=== PATIENT | female | born 1980 | race African-American/Black ===

== ENCOUNTER 2019-03-03 02:11 | Inpatient (IN) | payer MEDICAID ==
[~2019-03-03] VITALS: Ht 157.5 cm; Wt 109.8 kg
[2019-03-03] VITALS (9 sets, daily range): BP systolic 123–208; BP diastolic 89–130
--- NOTE | 2019-03-03 02:47 | PHYS DOC ---
Past Medical History Past Medical History: Hypertension Additional Past Medical Histor: PSUEDO TUMOR Past Surgical History: Tubal ligation Alcohol Use: None Drug Use: None Adult General Chief Complaint Chief Complaint: HEADACHE HPI HPI 39-year-old female presents to the emergency department via EMS. Patient states she was at work, noticed that natural gas smell subsequently developed a headache along with experiences syncopal episode. She states unknown amount of time for loss of consciousness, she could hear her boss talking with her. She denies any nausea or vomiting. She denies any chest pain or shortness of breath. She is currently alert and oriented, complains of headache. Patient does have underlying history of hypertension. Nothing makes her symptoms worse or better. Review of Systems Review of Systems Constitutional: Denies fever or chills [] Eyes: Denies change in visual acuity, redness, or eye pain [] HENT: Denies nasal congestion or sore throat [] Respiratory: Denies cough or shortness of breath [] Cardiovascular: No additional information not addressed in HPI [] GI: Denies abdominal pain, nausea, vomiting, bloody stools or diarrhea [] : Denies dysuria or hematuria [] Musculoskeletal: Denies back pain or joint pain [] Integument: Denies rash or skin lesions [] Neurologic: Headache All other systems were reviewed and found to be within normal limits, except as documented in this note. Current Medications Current Medications Current Medications Medications (Trade) Dose Ordered Sig/Farida Start Time Stop Time Status Last Admin Dose Admin Clonidine HCl (Catapres) 0.1 mg 1X ONCE 03/03/19 03:00 03/03/19 03:01 DC 03/03/19 03:11 0.1 MG Hydralazine HCl (Apresoline Inj) 10 mg 1X ONCE 03/03/19 04:00 03/03/19 04:01 UNV Ketorolac Tromethamine (Toradol 30mg Vial) 30 mg 1X ONCE 03/03/19 03:00 03/03/19 03:01 DC 03/03/19 03:11 30 MG Allergies Allergies Allergies Coded Allergies Type Severity Reaction Last Updated Verified acetaminophen Allergy Intermediate 03/03/19 Yes hydrocodone Allergy Intermediate 03/03/19 Yes Physical Exam Physical Exam Constitutional: Well developed, well nourished, no acute distress, non-toxic appearance. [] HENT: Normocephalic, atraumatic, bilateral external ears normal, oropharynx moist, no oral exudates, nose normal. [] Eyes: PERRLA, EOMI, conjunctiva normal, no discharge. [] Cardiovascular:Heart rate regular rhythm, no murmur [] Lungs & Thorax: Bilateral breath sounds clear to auscultation [] Abdomen: Bowel sounds normal, soft, no tenderness, no masses, no pulsatile masses. [] Skin: Warm, dry, no erythema, no rash. [] Extremities: No tenderness, no cyanosis, no clubbing, ROM intact, no edema. [] Neurologic: Alert and oriented X 3, no focal deficits noted. [] Psychologic: Affect normal, judgement normal, mood normal. [] Current Patient Data Vital Signs Vital Signs Date Time Temp Pulse Resp B/P (MAP) Pulse Ox O2 Delivery O2 Flow Rate FiO2 03/03/19 03:11 77 211/110 03/03/19 02:11 97.4 18 100 Room Air 97.4 Lab Values Laboratory Tests Test 03/03/19 02:42 03/03/19 03:08 O2 Saturation 94 % (92-99) Arterial Blood pH 7.39 (7.35-7.45) Arterial Blood pCO2 at Patient Temp 36 mmHg (35-46) Arterial Blood pO2 at Patient Temp 71 mmHg (75-108) L Arterial Blood HCO3 22 mmol/L (21-28) Arterial Blood Base Excess -3 mmol/L (-3-3) Oxyhemoglobin 90.6 % Methemoglobin 0.4 % (0.0-1.9) Carbon Monoxide, Quantitative 3.4 % (0.0-1.9) H FiO2 Room air White Blood Count 5.5 x10^3/uL (4.0-11.0) Red Blood Count 4.77 x10^6/uL (3.50-5.40) Hemoglobin 13.7 g/dL (12.0-15.5) Hematocrit 40.6 % (36.0-47.0) Mean Corpuscular Volume 85 fL (79-100) Mean Corpuscular Hemoglobin 29 pg (25-35) Mean Corpuscular Hemoglobin Concent 34 g/dL (31-37) Red Cell Distribution Width 13.7 % (11.5-14.5) Platelet Count 246 x10^3/uL (140-400) Neutrophils (%) (Auto) 53 % (31-73) Lymphocytes (%) (Auto) 37 % (24-48) Monocytes (%) (Auto) 6 % (0-9) Eosinophils (%) (Auto) 3 % (0-3) Basophils (%) (Auto) 1 % (0-3) Neutrophils # (Auto) 2.9 x10^3/uL (1.8-7.7) Lymphocytes # (Auto) 2.0 x10^3/uL (1.0-4.8) Monocytes # (Auto) 0.3 x10^3/uL (0.0-1.1) Eosinophils # (Auto) 0.2 x10^3/uL (0.0-0.7) Basophils # (Auto) 0.1 x10^3/uL (0.0-0.2) Sodium Level 142 mmol/L (136-145) Potassium Level 3.8 mmol/L (3.5-5.1) Chloride Level 103 mmol/L (98-107) Carbon Dioxide Level 27 mmol/L (21-32) Anion Gap 12 (6-14) Blood Urea Nitrogen 11 mg/dL (7-20) Creatinine 0.9 mg/dL (0.6-1.0) Estimated GFR (Cockcroft-Gault) 84.3 BUN/Creatinine Ratio 12 (6-20) Glucose Level 97 mg/dL (70-99) Calcium Level 9.5 mg/dL (8.5-10.1) Total Bilirubin 0.2 mg/dL (0.2-1.0) Aspartate Amino Transferase (AST) 16 U/L (15-37) Alanine Aminotransferase (ALT) 22 U/L (14-59) Alkaline Phosphatase 101 U/L (46-116) Troponin I Quantitative < 0.017 ng/mL (0.000-0.055) Total Protein 7.6 g/dL (6.4-8.2) Albumin 4.0 g/dL (3.4-5.0) Albumin/Globulin Ratio 1.1 (1.0-1.7) Laboratory Tests 03/03/19 03:08 Laboratory Tests 03/03/19 03:08 EKG EKG [] Radiology/Procedures Radiology/Procedures [facility] [address] [place] [address] IMAGING REPORT Signed PATIENT: SARAH MIGUEL ACCOUNT: [id number] : 1980 LOCATION: ER AGE: 39 SEX: F EXAM STATUS: REG ER ORD. PHYSICIAN: FARIDA PUENTE MD REASON: Syncope, + LOC, hit head PROCEDURE: CT HEAD WO CONTRAST CT head without contrast PQRS statement: CT scans at this facility use dose reduction including either automated exposure control, iterative reconstructions, and /or weight based radiation dosing via mA and kV modification when appropriate to reduce radiation dose to as low as reasonably achievable. HISTORY: Syncope, fell and hit head. FINDINGS: No intracranial hemorrhage, mass, hydrocephalus or cortical infarction. There is a subtle echogenic focus of the left frontal lobe subcortical white matter above the sylvian fissure images 17-19. Small volume of fluid right maxillary sinus. Mastoids and bones are unremarkable. Orbits unremarkable. IMPRESSION: 1. No acute traumatic intracranial CT abnormality. 2. Mild fluid within the right maxillary sinus could be sinusitis. 3. Focal subcortical hypoattenuation of the left frontal lobe white matter above the sylvian fissure, this could represent an age-indeterminate area of ischemic or demyelinating white matter injury. Electronically signed by: Gissel Ruggiero MD (03/03/2019 3:50 AM) [facility] DICTATED and SIGNED BY: GISSEL RUGGIERO MD DATE: 03/03/19 0350 [] Course & Med Decision Making Course & Med Decision Making Pertinent Labs and Imaging studies reviewed. (See chart for details) []39-year-old female presents to the emergency department via EMS. Patient states she was at work, noticed that natural gas smell subsequently developed a headache along with experiences syncopal episode. She states unknown amount of time for loss of consciousness, she could hear her boss talking with her. She denies any nausea or vomiting. She denies any chest pain or shortness of breath. She is currently alert and oriented, complains of headache. Patient does have underlying history of hypertension. Nothing makes her symptoms worse or better. Labs and imaging reviewed. CT the head reveals no evidence of acute intracranial process, she has old ischemic changes. Labs reveal evidence of elevated carbon monoxide of 3.4, normal being less than 1.9. Given the symptoms of headache, elevated carbon monoxide, hypertensive urgency or plan for admission and observation. Patient provided Toradol 30 mg IV, clonidine 0.1 mg by mouth, hydralazine 10 mg IV. Will follow blood pressure closely. Patient will be admitted to the hospitalist. Patient is aware of the plans for admission at this time and agrees. Questions regarding admission were answered at bedside. Dragon Disclaimer Dragon Disclaimer This electronic medical record was generated, in whole or in part, using a voice recognition dictation system. Departure Departure Impression: Primary Impression: Syncope and collapse Additional Impressions: Carbon monoxide poisoning Hypertensive urgency Disposition: ADMITTED INPATIENT Admitting Physician: KECIA Condition: STABLE Problem Qualifiers Additional Impressions: Carbon monoxide poisoning Encounter type: initial encounter Injury intent: accidental or unintentional Qualified Codes: T58.91XA - Toxic effect of carbon monoxide from unspecified source, accidental (unintentional), initial encounter FARIDA PUENTE MD Mar 03, 2019 02:47
[2019-03-03] MEDS ORDERED: cloNIDine HCL 0.1 MG TABLET PO ONE (03:00)
[2019-03-03] MEDS ORDERED: KETOROLAC 30 MG/ML VIAL. IV ONE (03:00)
[2019-03-03 03:03] LABS: BASE EXCESS COOX -3 mmol/L (-3-3); HCO3 COOX 22 mmol/L (21-28); METHEMOGLOBIN 0.4 % (0.0-1.9); OXYHEMOGLOBIN 90.6 %; PCO2 COOX 36 mmHg (35-46); PO2 COOX 71 mmHg (75-108); SAT O2 COOX 94 % (92-99)
[2019-03-03 03:12] LABS: BASO # 0.1 x10^3/uL (0.0-0.2); BASO % 1 % (0-3); EOS # 0.2 x10^3/uL (0.0-0.7); EOS % 3 % (0-3); HEMATOCRIT 40.6 % (36.0-47.0); HEMOGLOBIN 13.7 g/dL (12.0-15.5); LYMPH % 37 % (24-48); MEAN CORPUSCULAR HEMOGLOBIN 29 pg (25-35); MEAN CORPUSCULAR HGB CONC 34 g/dL (31-37); MEAN CORPUSCULAR VOLUME 85 fL (79-100); MONO # 0.3 x10^3/uL (0.0-1.1); MONO % 6 % (0-9); NEUT # 2.9 x10^3/uL (1.8-7.7); NEUT % 53 % (31-73); PLATELET COUNT 246 x10^3/uL (140-400); RED BLOOD COUNT 4.77 x10^6/uL (3.50-5.40); RED CELL DISTRIBUTION WIDTH 13.7 % (11.5-14.5); WHITE BLOOD COUNT 5.5 x10^3/uL (4.0-11.0)
[2019-03-03 03:21] LABS: CALCIUM 9.5 mg/dL (8.5-10.1); CREATININE 0.9 mg/dL (0.6-1.0); GFR 84.3; POTASSIUM 3.8 mmol/L (3.5-5.1)
[2019-03-03 03:27] LABS: ALBUMIN/GLOBULIN RATIO 1.1 (1.0-1.7); TOTAL BILIRUBIN 0.2 mg/dL (0.2-1.0); TOTAL PROTEIN 7.6 g/dL (6.4-8.2)
--- NOTE | 2019-03-03 03:53 | RAD ---
CT head without contrast PQRS statement: CT scans at this facility use dose reduction including either automated exposure control, iterative reconstructions, and /or weight based radiation dosing via mA and kV modification when appropriate to reduce radiation dose to as low as reasonably achievable. HISTORY: Syncope, fell and hit head. FINDINGS: No intracranial hemorrhage, mass, hydrocephalus or cortical infarction. There is a subtle echogenic focus of the left frontal lobe subcortical white matter above the sylvian fissure images 17-19. Small volume of fluid right maxillary sinus. Mastoids and bones are unremarkable. Orbits unremarkable. IMPRESSION: 1. No acute traumatic intracranial CT abnormality. 2. Mild fluid within the right maxillary sinus could be sinusitis. 3. Focal subcortical hypoattenuation of the left frontal lobe white matter above the sylvian fissure, this could represent an age-indeterminate area of ischemic or demyelinating white matter injury. Electronically signed by: Clif Ruggiero MD (03/03/2019 3:50 AM) [facility]
[2019-03-03] MEDS ORDERED: hydrALAZINE 20 MG/ML VIAL. IVP ONE (04:30)
[2019-03-03] MEDS ORDERED: CLONAZEPAM1 MG PO (07:24)
[2019-03-03] MEDS ORDERED: TOPI100T8 PO (07:24)
[2019-03-03] MEDS ORDERED: GABA600T7 PO (07:24)
[2019-03-03] MEDS ORDERED: LISI1TAB23 PO (07:24)
--- NOTE | 2019-03-03 07:32 | NUR ---
Pt admitted this am pt states she has been sick for approximately a week and states been having a poor appetite. Pt states she was at work and smelled a gas chemical and immediately had a headache and believes she fell however she does not know if she hit her head. Pt thinks her boss helped to ease her to the floor. Pt states having a history of flu B. Pt states seeing her primary Physician at [facility] on and they tested her for Flu B and it came back inconclusive. Pt sent home without abx. Pt with hoarseness noted and difficulty talking. When pt transferred to floor Nurse states possible laryngitis.
--- NOTE | 2019-03-03 07:51 | EKG ---
[facility] [address] [place] [address] Test Date: 2019-03-03 Test Time: 02:29:10 Pat Name: SARAH MIGUEL Department: Room: Gender: F Digital Production Manager: : 1980 Requested By: FARIDA PUENTE Order Number: [id number] Reading MD: Measurements Intervals [place] Rate: 77 P: 72 WV: 190 QRS: -9 QRSD: 80 T: 22 QT: 436 QTc: 495 Interpretive Statements SINUS RHYTHM LEFTWARD AXIS PROLONGED QT NO SPECIFIC ECG ABNORMALITIES RI6.01 No previous ECG available for comparison
--- NOTE | 2019-03-03 08:26 | PDOC1 ---
History and Physical Date of Admission Date of Admission DATE: 03/03/19 TIME: 08:25 Identification/Chief Complaint Chief Complaint SEEN IN ER, WORKS AT [employer] [place] [address] Patient states she was at work, noticed that natural gas smell subsequently developed a headache along with experienced a syncopal episode. She states unknown amount of time for loss of consciousness, she could hear her boss talking with her. She denies any nausea or vomiting. She denies any chest pain HAS shortness of breath. She is currently alert and oriented has been hoarse x a week, is a smoker Past Medical History Past Medical History Past Medical History Past Medical History: Hypertension Additional Past Medical Histor: PSUEDO TUMOR Past Surgical History: Tubal ligation Alcohol Use: None Drug Use: None fhx obesity Rheumatologic: No pertinent hx Infectious disease: No pertinent hx Family History Family History: High Cholestrol, Hypertension Social History Smoke: <1 pack per day ALCOHOL: none Drugs: None Current Problem List Problem List Problems Medical Problems: (1) Carbon monoxide poisoning Status: Acute (2) Hypertensive urgency Status: Acute (3) Syncope and collapse Status: Acute Current Medications Current Medications Current Medications Clonidine HCl (Catapres) 0.1 mg 1X ONCE PO Last administered on 03/03/19at 03:11; Start 03/03/19 at 03:00; Stop 03/03/19 at 03:01; Status DC Ketorolac Tromethamine (Toradol 30mg Vial) 30 mg 1X ONCE IV Last administered on 03/03/19at 03:11; Start 03/03/19 at 03:00; Stop 03/03/19 at 03:01; Status DC Hydralazine HCl (Apresoline Inj) 10 mg 1X ONCE IVP Last administered on 03/03/19at 04:29; Start 03/03/19 at 04:30; Stop 03/03/19 at 04:31; Status DC Active Scripts Active Reported Gabapentin 600 Mg Tablet 300 Mg PO TID Topiramate Unknown Strength Tablet Unknown Dose PO TID Lisinopril-Hctz 10-12.5 Mg Tab (Lisinopril/Hydrochlorothiazide) Unknown Strength Tablet Unknown Dose PO DAILY Clonazepam 1 Mg Tablet 1 Mg PO HS PRN Allergies Allergies: Coded Allergies: acetaminophen (Verified Allergy, Intermediate, 03/03/19) hydrocodone (Verified Allergy, Intermediate, 9/15/19) ROS Review of System Review of Systems Review of Systems Constitutional: Denies fever or chills [] Eyes: Denies change in visual acuity, redness, or eye pain [] HENT: Denies nasal congestion or sore throat [] Respiratory: cough MILD shortness of breath [] Cardiovascular: No additional information not addressed in HPI [] GI: Denies abdominal pain, nausea, vomiting, bloody stools or diarrhea [] : Denies dysuria or hematuria [] Musculoskeletal: Denies back pain or joint pain [] Integument: Denies rash or skin lesions [] Neurologic: Headache 14 PT systems were reviewed and found to be within normal limits, except as documented PSYCHOLOGICAL ROS: No: Anxiety, Behavioral Disorder, Concentration difficultie, Decreased libido, Depression, Disorientation, Hallucinations, Hostility, Irritablity, Memory difficulties, Mood Swings, Obsessive thoughts, Physical abuse, Sexual abuse, Sleep disturbances, Suicidal ideation, Other HEENT: YES: Heacaches, Nasal congestion, Vocal changes Hematological and Lymphatic: No: Bleeding Problems, Blood Clots, Blood Transfusions, Brusing, Night Sweats, Pallor, Swollen Lymph Nodes, Other Respiratory: YES: Shortness of breath Gastrointestinal: No Nausea, No Vomiting, No Abdominal Pain, No Diarrhea, No Constipation, No Melena, No Hematochezia, No Other Physical Exam Physical Exam Physical Exam Physical Exam Constitutional: Well developed, well nourished, no acute distress, non-toxic appearance. [] HENT: Normocephalic, atraumatic, bilateral external ears normal, oropharynx moist, no oral exudates, nose normal. [] Eyes: PERRLA, EOMI, conjunctiva normal, no discharge. [] Cardiovascular:Heart rate regular rhythm, no murmur [] Lungs & Thorax: Bilateral breath sounds clear to auscultation [] Abdomen: Bowel sounds normal, soft, no tenderness, no masses, no pulsatile masses. [] Skin: Warm, dry, no erythema, no rash. [] Extremities: No tenderness, no cyanosis, no clubbing, ROM intact, no edema. [] Neurologic: Alert and oriented X 3, no focal deficits noted. [] Psychologic: Affect normal, judgement normal, mood normal. [] General: Alert, Oriented X3, Cooperative HEENT: Atraumatic, PERRLA, EOMI, Mucous membr. moist/pink Lungs: Clear to auscultation, Normal air movement Heart: RRR, no thrills Breasts: Not examined Abdomen: Soft Rectal Exam: not examined PELVIC: Examination not indicated Extremities: No clubbing, No cyanosis Skin: No rashes Neuro: Normal speech, Cranial nerves 3-12 NL Psych/Mental Status: Mental status NL, Mood NL Vitals Vitals Vital Signs Date Time Temp Pulse Resp B/P (MAP) Pulse Ox O2 Delivery O2 Flow Rate FiO2 03/03/19 07:47 Non-Rebreather 15.0 03/03/19 07:00 97.2 71 20 171/96 (121) 100 97.2 Labs Labs Laboratory Tests Test 03/03/19 02:42 03/03/19 03:08 O2 Saturation 94 % (92-99) Arterial Blood pH 7.39 (7.35-7.45) Arterial Blood pCO2 at Patient Temp 36 mmHg (35-46) Arterial Blood pO2 at Patient Temp 71 mmHg (75-108) Arterial Blood HCO3 22 mmol/L (21-28) Arterial Blood Base Excess -3 mmol/L (-3-3) Oxyhemoglobin 90.6 % Methemoglobin 0.4 % (0.0-1.9) Carbon Monoxide, Quantitative 3.4 % (0.0-1.9) FiO2 Room air White Blood Count 5.5 x10^3/uL (4.0-11.0) Red Blood Count 4.77 x10^6/uL (3.50-5.40) Hemoglobin 13.7 g/dL (12.0-15.5) Hematocrit 40.6 % (36.0-47.0) Mean Corpuscular Volume 85 fL (79-100) Mean Corpuscular Hemoglobin 29 pg (25-35) Mean Corpuscular Hemoglobin Concent 34 g/dL (31-37) Red Cell Distribution Width 13.7 % (11.5-14.5) Platelet Count 246 x10^3/uL (140-400) Neutrophils (%) (Auto) 53 % (31-73) Lymphocytes (%) (Auto) 37 % (24-48) Monocytes (%) (Auto) 6 % (0-9) Eosinophils (%) (Auto) 3 % (0-3) Basophils (%) (Auto) 1 % (0-3) Neutrophils # (Auto) 2.9 x10^3/uL (1.8-7.7) Lymphocytes # (Auto) 2.0 x10^3/uL (1.0-4.8) Monocytes # (Auto) 0.3 x10^3/uL (0.0-1.1) Eosinophils # (Auto) 0.2 x10^3/uL (0.0-0.7) Basophils # (Auto) 0.1 x10^3/uL (0.0-0.2) Sodium Level 142 mmol/L (136-145) Potassium Level 3.8 mmol/L (3.5-5.1) Chloride Level 103 mmol/L (98-107) Carbon Dioxide Level 27 mmol/L (21-32) Anion Gap 12 (6-14) Blood Urea Nitrogen 11 mg/dL (7-20) Creatinine 0.9 mg/dL (0.6-1.0) Estimated GFR (Cockcroft-Gault) 84.3 BUN/Creatinine Ratio 12 (6-20) Glucose Level 97 mg/dL (70-99) Calcium Level 9.5 mg/dL (8.5-10.1) Total Bilirubin 0.2 mg/dL (0.2-1.0) Aspartate Amino Transf (AST/SGOT) 16 U/L (15-37) Alanine Aminotransferase (ALT/SGPT) 22 U/L (14-59) Alkaline Phosphatase 101 U/L (46-116) Troponin I Quantitative < 0.017 ng/mL (0.000-0.055) Total Protein 7.6 g/dL (6.4-8.2) Albumin 4.0 g/dL (3.4-5.0) Albumin/Globulin Ratio 1.1 (1.0-1.7) Laboratory Tests Test 03/03/19 02:42 03/03/19 03:08 O2 Saturation 94 % (92-99) Arterial Blood pH 7.39 (7.35-7.45) Arterial Blood pCO2 at Patient Temp 36 mmHg (35-46) Arterial Blood pO2 at Patient Temp 71 mmHg (75-108) Arterial Blood HCO3 22 mmol/L (21-28) Arterial Blood Base Excess -3 mmol/L (-3-3) Oxyhemoglobin 90.6 % Methemoglobin 0.4 % (0.0-1.9) Carbon Monoxide, Quantitative 3.4 % (0.0-1.9) FiO2 Room air White Blood Count 5.5 x10^3/uL (4.0-11.0) Red Blood Count 4.77 x10^6/uL (3.50-5.40) Hemoglobin 13.7 g/dL (12.0-15.5) Hematocrit 40.6 % (36.0-47.0) Mean Corpuscular Volume 85 fL (79-100) Mean Corpuscular Hemoglobin 29 pg (25-35) Mean Corpuscular Hemoglobin Concent 34 g/dL (31-37) Red Cell Distribution Width 13.7 % (11.5-14.5) Platelet Count 246 x10^3/uL (140-400) Neutrophils (%) (Auto) 53 % (31-73) Lymphocytes (%) (Auto) 37 % (24-48) Monocytes (%) (Auto) 6 % (0-9) Eosinophils (%) (Auto) 3 % (0-3) Basophils (%) (Auto) 1 % (0-3) Neutrophils # (Auto) 2.9 x10^3/uL (1.8-7.7) Lymphocytes # (Auto) 2.0 x10^3/uL (1.0-4.8) Monocytes # (Auto) 0.3 x10^3/uL (0.0-1.1) Eosinophils # (Auto) 0.2 x10^3/uL (0.0-0.7) Basophils # (Auto) 0.1 x10^3/uL (0.0-0.2) Sodium Level 142 mmol/L (136-145) Potassium Level 3.8 mmol/L (3.5-5.1) Chloride Level 103 mmol/L (98-107) Carbon Dioxide Level 27 mmol/L (21-32) Anion Gap 12 (6-14) Blood Urea Nitrogen 11 mg/dL (7-20) Creatinine 0.9 mg/dL (0.6-1.0) Estimated GFR (Cockcroft-Gault) 84.3 BUN/Creatinine Ratio 12 (6-20) Glucose Level 97 mg/dL (70-99) Calcium Level 9.5 mg/dL (8.5-10.1) Total Bilirubin 0.2 mg/dL (0.2-1.0) Aspartate Amino Transf (AST/SGOT) 16 U/L (15-37) Alanine Aminotransferase (ALT/SGPT) 22 U/L (14-59) Alkaline Phosphatase 101 U/L (46-116) Troponin I Quantitative < 0.017 ng/mL (0.000-0.055) Total Protein 7.6 g/dL (6.4-8.2) Albumin 4.0 g/dL (3.4-5.0) Albumin/Globulin Ratio 1.1 (1.0-1.7) Images Images REASON: Syncope, + LOC, hit head PROCEDURE: CT HEAD WO CONTRAST CT head without contrast PQRS statement: CT scans at this facility use dose reduction including either automated exposure control, iterative reconstructions, and /or weight based radiation dosing via mA and kV modification when appropriate to reduce radiation dose to as low as reasonably achievable. HISTORY: Syncope, fell and hit head. FINDINGS: No intracranial hemorrhage, mass, hydrocephalus or cortical infarction. There is a subtle echogenic focus of the left frontal lobe subcortical white matter above the sylvian fissure images 17-19. Small volume of fluid right maxillary sinus. Mastoids and bones are unremarkable. Orbits unremarkable. IMPRESSION: 1. No acute traumatic intracranial CT abnormality. 2. Mild fluid within the right maxillary sinus could be sinusitis. 3. Focal subcortical hypoattenuation of the left frontal lobe white matter above the sylvian fissure, this could represent an age-indeterminate area of ischemic or demyelinating white matter injury. Electronically signed by: Clif Ruggiero MD (03/03/2019 3:50 AM) [facility] VTE Prophylaxis Ordered VTE Prophylaxis Devices: Yes VTE Pharmacological Prophylaxi: Yes Assessment/Plan Assessment/Plan IMPRESSION carbon monoxide exposure, SYMPTOMATIC, confirmed by abg 03/[address] HEAD Focal subcortical hypoattenuation of the left frontal lobe white matter above the sylvian fissure, this could represent an age-indeterm inate area of ischemic or demyelinating white matter injury. HX PSEUDOTUMOR CEREBRI morbid obesity, EXTREME URI SYNCOPE hx htn repeat ABGs with carbon monoxide level if level has come will discontinue nonrebreather mask. PULM CONSULT O2 SUPPORT ALBUTEROL QID NEBS FLU SCREEN DVT PROPHYLAXIS NEUROLOGY CONSULT CONSIDER MRI HEAD NEUROCHECKS Q 4 HRS PCXR business must check for source of CO DOT 75 MIN PT EXAM, CHART REVIEW, > 50% OF TIME SPENT WITH EXAM, CHART REVIEW, PT CARE COORDINATION PERCY WONG MD Mar 03, 2019 08:25
[2019-03-03] MEDS ORDERED: ALBUTEROL SULFATE 2.5 MG/3 ML NEBU. NEB SCH (09:00)
[2019-03-03 09:53] LABS: BASE EXCESS COOX -1 mmol/L (-3-3); HCO3 COOX 23 mmol/L (21-28); METHEMOGLOBIN 0.6 % (0.0-1.9); OXYHEMOGLOBIN 97.4 %; PCO2 COOX 36 mmHg (35-46); PO2 COOX 147 mmHg (75-108); SAT O2 COOX 98 % (92-99)
[2019-03-03] MEDS ORDERED: ALBUTEROL SULFATE 2.5 MG/3 ML NEBU. NEB PRN (10:00)
--- NOTE | 2019-03-03 10:47 | CONS ---
DATE OF CONSULTATION: 03/03/2019 PULMONARY CONSULTATION ATTENDING PHYSICIAN: Dr. Pride. REASON FOR CONSULTATION: Carbon monoxide poisoning. 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 The patient says that when she was working at the window, she noticed smell of natural gas, which she thought came from outside. She developed headache and had some lightheadedness. There was some report of some syncopal episode as well. The patient was brought into the [place] [facility]. She said she did not have any shortness of breath. She says that she had cold-like symptoms for about a week and a half, for which she saw her primary care and influenza test was equivocal. She was placed on a nonrebreather mask. ABG showed a pH of 7.39, pCO2 of 36, pO2 71 and carbon monoxide level of 3.4. She has been hoarse for the last week and a half as well. PAST MEDICAL HISTORY: History of pseudotumor and hypertension. PAST SURGICAL HISTORY: Tubal ligation. ALLERGIES: ACETAMINOPHEN AND HYDROCODONE. REVIEW OF SYSTEMS: As discussed in my history of present illness, otherwise noncontributory. SOCIAL HISTORY: Smokes cigarettes, one pack would last a week. No drugs. MEDICATIONS: Reviewed as listed in the [facility]AD. PHYSICAL EXAMINATION: VITAL SIGNS: On examination, stable except blood pressure on the high side, pulse ox 98% on nonrebreather mask. HEENT: Sclerae nonicteric. NECK: Supple. LUNGS: Clear. CARDIOVASCULAR: Regular rate and rhythm. ABDOMEN: Soft. EXTREMITIES: With no pitting edema. LABORATORY DATA: Reviewed. ABG discussed in my history of present illness. BUN 11 and creatinine 0.9. IMPRESSION: 1. Mild carbon monoxide poisoning, clinically better. She has been kept on nonrebreather mask. Her carbon monoxide level is mildly elevated at 3.4. Clinically, she is better. 2. Recent viral laryngitis, which she developed prior to this episode and was tested for flu. It was equivocal. We will repeat the influenza test again and place her on empiric antibiotic. 3. History of tobaccoism. 4. We will obtain chest x-ray to rule out any infection. RECOMMENDATIONS: 1. We will obtain repeat ABGs with carbon monoxide level and if level has come down, then we will discontinue nonrebreather mask. 2. Add empiric antibiotic. 3. Repeat influenza screen. 4. Add bronchodilators. 5. Smoking cessation counseling provided. 6. Discussed with RN. JAGDISH RODNEY MD DR: BABATUNDE/loreta JOB#: [id number] / [id number]
[2019-03-03] MEDS: cefTRIAXone IV Push 1 GM VIAL. IVP SCH (11:27)
[2019-03-03] MEDS: IPRATRPIUM/ALBUTEROL 0.5/2.5MG 3 ML NEBU. NEB SCH ×3 (11:43→19:21)
[2019-03-03] MEDS: BUDESONIDE 0.5 MG/2 ML NEBU. NEB SCH ×2 (11:43→19:21)
[2019-03-03] MEDS ORDERED: DOCUSATE SODIUM 100 MG CAPSULE. PO PRN (11:45)
[2019-03-03] MEDS ORDERED: ONDANSETRON PF 4 MG/2 ML VIAL. IV PRN (11:45)
[2019-03-03] MEDS ORDERED: cloNIDine HCL 0.1 MG TABLET PO PRN (11:45)
[2019-03-03] MEDS ORDERED: MAG HYDROX/ALUMINUM HYD/SIMETH 30 ML ORAL.SUSP PO PRN (11:45)
[2019-03-03] MEDS ORDERED: ACETAMINOPHEN 325 MG TABLET. PO PRN (11:45)
[2019-03-03] MEDS ORDERED: 0.9 % SODIUM CHLORIDE 10 ML DISP.SYRIN. IV PRN (11:45)
[2019-03-03] MEDS ORDERED: IV NORMAL SALINE 1000ML BAG 1,000 ML IV SCH (12:30)
[2019-03-03] MEDS ORDERED: clonazePAM 1 MG TABLET PO PRN (12:45)
--- NOTE | 2019-03-03 13:57 | RAD ---
PORTABLE CHEST 1V History: Cough Comparison: None. Findings: Single view of the chest is submitted. Pericardial cardiac silhouette is somewhat prominent. There is somewhat linear appearing opacity at the lung bases bilaterally probable atelectasis. There is no significant dependent pleural fluid or pneumothorax. Impression: 1. There is some opacity at lung bases bilaterally possible atelectasis. Electronically signed by: Amarjit Horta MD (03/03/2019 1:54 PM) [id number]
[2019-03-03] MEDS: guaiFENesin ORAL 200 MG/10 ML LIQUID. PO PRN (14:11)
[2019-03-03] MEDS: LISINOPRIL 10 MG TABLET PO SCH (14:12)
[2019-03-03] MEDS: TOPIRAMATE 25 MG TABLET. PO SCH ×2 (14:12→19:45)
[2019-03-03] MEDS: GABAPENTIN 300 MG CAPSULE. PO SCH ×2 (14:12→19:45)
[2019-03-03] MEDS: hydrALAZINE 20 MG/ML VIAL. IVP PRN (14:13)
[2019-03-03] MEDS: LORazepam 0.5 MG TABLET PO PRN (15:41)
--- NOTE | 2019-03-03 19:12 | PDOC2 ---
NEUROLOGY CONSULT Date of Admission Date of Admission Full Report Dictated Patient is a pleasant 39-year-old woman who had an episode of syncope at work. She's been sick with a respiratory illness for 1 week. She smelled an odor of natural gas which gave her a headache and made her pass out. The car monoxide level was elevated to 3.4 but this potentially could've been elevated from her cigarette smoking. I don't feel this level of carbon monoxide would contribute to syncope. I will obtain an MRI to evaluate for possible stroke in light of the abnormal CAT scan and the visual field cut to the right suggesting a right homonymous hemianopsia. DATE: 03/03/19 TIME: 19:12 Current Medications Current Medications Current Medications Clonidine HCl (Catapres) 0.1 mg 1X ONCE PO Last administered on 03/03/19at 03:11; Start 03/03/19 at 03:00; Stop 03/03/19 at 03:01; Status DC Ketorolac Tromethamine (Toradol 30mg Vial) 30 mg 1X ONCE IV Last administered on 03/03/19at 03:11; Start 03/03/19 at 03:00; Stop 03/03/19 at 03:01; Status DC Hydralazine HCl (Apresoline Inj) 10 mg 1X ONCE IVP Last administered on 03/03/19at 04:29; Start 03/03/19 at 04:30; Stop 03/03/19 at 04:31; Status DC Albuterol Sulfate (Ventolin Neb Soln) 2.5 mg RTQID NEB Last administered on 03/03/19at 08:54; Start 03/03/19 at 09:00; Stop 03/03/19 at 09:47; Status DC Ceftriaxone Sodium (Rocephin) 1 gm Q24H IVP Last administered on 03/03/19at 11:27; Start 03/03/19 at 10:30 Albuterol/ Ipratropium (Duoneb) 3 ml RTQID NEB Last administered on 03/03/19at 14:58; Start 03/03/19 at 12:00 Budesonide (Pulmicort) 0.5 mg RTBID NEB Last administered on 03/03/19at 11:43; Start 03/03/19 at 12:00 Albuterol Sulfate (Ventolin Neb Soln) 2.5 mg PRN QID PRN NEB SHORTNESS OF BREATH; Start 03/03/19 at 10:00 Sodium Chloride (Normal Saline Flush) 3 ml QSHIFT PRN IV AFTER MEDS AND BLOOD DRAWS; Start 03/03/19 at 11:45 Sodium Chloride 1,000 ml @ 100 mls/hr Q10H IV ; Start 03/03/19 at 12:30; Stop 03/03/19 at 12:30; Status DC Ondansetron HCl (Zofran) 4 mg PRN Q4HRS PRN IV NAUSEA/VOMITING; Start 03/03/19 at 11:45 Acetaminophen (Tylenol) 650 mg PRN Q4HRS PRN PO TEMP OVER 100.4F OR MILD PAIN; Start 03/03/19 at 11:45; Status UNV Al Hydroxide/Mg Hydroxide (Mylanta Plus Xs) 30 ml PRN DAILY PRN PO HEARTBURN / GAS; Start 03/03/19 at 11:45 Clonidine HCl (Catapres) 0.1 mg PRN Q6HRS PRN PO SBP>160 OR DBP>90; Start 03/03/19 at 11:45 Docusate Sodium (Colace) 100 mg PRN BID PRN PO CONSTIPATION; Start 03/03/19 at 11:45 Guaifenesin (Robitussin) 200 mg PRN Q4HRS PRN PO COUGH Last administered on 03/03/19at 14:13; Start 03/03/19 at 11:45 Lorazepam (Ativan) 0.5 mg PRN Q4HRS PRN PO ANXIETY / AGITATION Last administer ed on 03/03/19at 15:42; Start 03/03/19 at 11:45 Enoxaparin Sodium (Lovenox 40mg Syringe) 40 mg BID SQ ; Start 03/03/19 at 21:00 Clonazepam (KlonoPIN) 1 mg PRN QHS PRN PO INSOMNIA.; Start 03/03/19 at 12:45 Gabapentin (Neurontin) 300 mg TID PO Last administered on 03/03/19at 14:13; Start 03/03/19 at 14:00 Lisinopril (Prinivil) 10 mg DAILY PO Last administered on 03/03/19at 14:13; St art 03/03/19 at 13:30 Topiramate (Topamax) 25 mg TID PO Last administered on 03/03/19at 14:13; Start 03/03/19 at 14:00 Hydralazine HCl (Apresoline Inj) 10 mg PRN Q4HRS PRN IVP ELEVATED BP, SEE COMMENTS Last administered on 03/03/19at 14:13; Start 03/03/19 at 12:30 Lactobacillus Rhamnosus (Culturelle) 1 cap BID PO ; Start 03/03/19 at 21:00 Active Scripts Active Reported Gabapentin 600 Mg Tablet 300 Mg PO TID Topiramate Unknown Strength Tablet Unknown Dose PO TID Lisinopril-Hctz 10-12.5 Mg Tab (Lisinopril/Hydrochlorothiazide) Unknown Strength Tablet Unknown Dose PO DAILY Clonazepam 1 Mg Tablet 1 Mg PO HS PRN Allergies Allergies: Coded Allergies: acetaminophen (Verified Allergy, Intermediate, 03/03/19) hydrocodone (Verified Allergy, Intermediate, 03/03/19) Vitals VITALS Vital Signs Date Time Temp Pulse Resp B/P (MAP) Pulse Ox O2 Delivery O2 Flow Rate FiO2 03/03/19 15:00 98.2 87 18 156/92 (113) 96 Room Air 98.2 03/03/19 09:50 15.0 Labs Labs Laboratory Tests Test 03/03/19 02:42 03/03/19 03:08 03/03/19 09:50 O2 Saturation 94 % (92-99) 98 % (92-99) Arterial Blood pH 7.39 (7.35-7.45) 7.43 (7.35-7.45) Arterial Blood pCO2 at Patient Temp 36 mmHg (35-46) 36 mmHg (35-46) Arterial Blood pO2 at Patient Temp 71 mmHg (75-108) 147 mmHg (75-108) Arterial Blood HCO3 22 mmol/L (21-28) 23 mmol/L (21-28) Arterial Blood Base Excess -3 mmol/L (-3-3) -1 mmol/L (-3-3) Oxyhemoglobin 90.6 % 97.4 % Methemoglobin 0.4 % (0.0-1.9) 0.6 % (0.0-1.9) Carbon Monoxide, Quantitative 3.4 % (0.0-1.9) 0.3 % (0.0-1.9) FiO2 Room air 100 White Blood Count 5.5 x10^3/uL (4.0-11.0) Red Blood Count 4.77 x10^6/uL (3.50-5.40) Hemoglobin 13.7 g/dL (12.0-15.5) Hematocrit 40.6 % (36.0-47.0) Mean Corpuscular Volume 85 fL (79-100) Mean Corpuscular Hemoglobin 29 pg (25-35) Mean Corpuscular Hemoglobin Concent 34 g/dL (31-37) Red Cell Distribution Width 13.7 % (11.5-14.5) Platelet Count 246 x10^3/uL (140-400) Neutrophils (%) (Auto) 53 % (31-73) Lymphocytes (%) (Auto) 37 % (24-48) Monocytes (%) (Auto) 6 % (0-9) Eosinophils (%) (Auto) 3 % (0-3) Basophils (%) (Auto) 1 % (0-3) Neutrophils # (Auto) 2.9 x10^3/uL (1.8-7.7) Lymphocytes # (Auto) 2.0 x10^3/uL (1.0-4.8) Monocytes # (Auto) 0.3 x10^3/uL (0.0-1.1) Eosinophils # (Auto) 0.2 x10^3/uL (0.0-0.7) Basophils # (Auto) 0.1 x10^3/uL (0.0-0.2) Sodium Level 142 mmol/L (136-145) Potassium Level 3.8 mmol/L (3.5-5.1) Chloride Level 103 mmol/L (98-107) Carbon Dioxide Level 27 mmol/L (21-32) Anion Gap 12 (6-14) Blood Urea Nitrogen 11 mg/dL (7-20) Creatinine 0.9 mg/dL (0.6-1.0) Estimated GFR (Cockcroft-Gault) 84.3 BUN/Creatinine Ratio 12 (6-20) Glucose Level 97 mg/dL (70-99) Calcium Level 9.5 mg/dL (8.5-10.1) Total Bilirubin 0.2 mg/dL (0.2-1.0) Aspartate Amino Transf (AST/SGOT) 16 U/L (15-37) Alanine Aminotransferase (ALT/SGPT) 22 U/L (14-59) Alkaline Phosphatase 101 U/L (46-116) Troponin I Quantitative < 0.017 ng/mL (0.000-0.055) Total Protein 7.6 g/dL (6.4-8.2) Albumin 4.0 g/dL (3.4-5.0) Albumin/Globulin Ratio 1.1 (1.0-1.7) Laboratory Tests Test 03/03/19 02:42 03/03/19 03:08 03/03/19 09:50 O2 Saturation 94 % (92-99) 98 % (92-99) Arterial Blood pH 7.39 (7.35-7.45) 7.43 (7.35-7.45) Arterial Blood pCO2 at Patient Temp 36 mmHg (35-46) 36 mmHg (35-46) Arterial Blood pO2 at Patient Temp 71 mmHg (75-108) 147 mmHg (75-108) Arterial Blood HCO3 22 mmol/L (21-28) 23 mmol/L (21-28) Arterial Blood Base Excess -3 mmol/L (-3-3) -1 mmol/L (-3-3) Oxyhemoglobin 90.6 % 97.4 % Methemoglobin 0.4 % (0.0-1.9) 0.6 % (0.0-1.9) Carbon Monoxide, Quantitative 3.4 % (0.0-1.9) 0.3 % (0.0-1.9) FiO2 Room air 100 White Blood Count 5.5 x10^3/uL (4.0-11.0) Red Blood Count 4.77 x10^6/uL (3.50-5.40) Hemoglobin 13.7 g/dL (12.0-15.5) Hematocrit 40.6 % (36.0-47.0) Mean Corpuscular Volume 85 fL (79-100) Mean Corpuscular Hemoglobin 29 pg (25-35) Mean Corpuscular Hemoglobin Concent 34 g/dL (31-37) Red Cell Distribution Width 13.7 % (11.5-14.5) Platelet Count 246 x10^3/uL (140-400) Neutrophils (%) (Auto) 53 % (31-73) Lymphocytes (%) (Auto) 37 % (24-48) Monocytes (%) (Auto) 6 % (0-9) Eosinophils (%) (Auto) 3 % (0-3) Basophils (%) (Auto) 1 % (0-3) Neutrophils # (Auto) 2.9 x10^3/uL (1.8-7.7) Lymphocytes # (Auto) 2.0 x10^3/uL (1.0-4.8) Monocytes # (Auto) 0.3 x10^3/uL (0.0-1.1) Eosinophils # (Auto) 0.2 x10^3/uL (0.0-0.7) Basophils # (Auto) 0.1 x10^3/uL (0.0-0.2) Sodium Level 142 mmol/L (136-145) Potassium Level 3.8 mmol/L (3.5-5.1) Chloride Level 103 mmol/L (98-107) Carbon Dioxide Level 27 mmol/L (21-32) Anion Gap 12 (6-14) Blood Urea Nitrogen 11 mg/dL (7-20) Creatinine 0.9 mg/dL (0.6-1.0) Estimated GFR (Cockcroft-Gault) 84.3 BUN/Creatinine Ratio 12 (6-20) Glucose Level 97 mg/dL (70-99) Calcium Level 9.5 mg/dL (8.5-10.1) Total Bilirubin 0.2 mg/dL (0.2-1.0) Aspartate Amino Transf (AST/SGOT) 16 U/L (15-37) Alanine Aminotransferase (ALT/SGPT) 22 U/L (14-59) Alkaline Phosphatase 101 U/L (46-116) Troponin I Quantitative < 0.017 ng/mL (0.000-0.055) Total Protein 7.6 g/dL (6.4-8.2) Albumin 4.0 g/dL (3.4-5.0) Albumin/Globulin Ratio 1.1 (1.0-1.7) WENDY MALHOTRA MD Mar 03, 2019 19:12
[2019-03-03] MEDS: LACTOBACILLUS RHAMNOSUS GG 1 CAPSULE. PO SCH (19:45)
[2019-03-03] MEDS: ENOXAPARIN 40 MG/0.4 ML SYRINGE. SQ SCH (19:45)
[2019-03-03 20:02] LABS: INFLUENZA A PATIENT NEGATIVE (NEGATIVE); INFLUENZA B PATIENT NEGATIVE (NEGATIVE)
[2019-03-04 03:40] VITALS: BP 182/105
[2019-03-04] MEDS: hydrALAZINE 20 MG/ML VIAL. IVP PRN ×2 (04:02→07:37)
--- NOTE | 2019-03-04 05:15 | CONS ---
DATE OF CONSULTATION: 03/03/2019 REFERRING PHYSICIAN: Alpa Ross MD REASON FOR CONSULTATION: Syncope, pseudotumor cerebri, elevated carbon monoxide level and abnormal CAT scan of the head. HISTORY OF PRESENT ILLNESS: The patient is a pleasant 39-year-old woman who was at work at [employer] when suddenly she smelled a natural gas smell. Subsequently, she had a spell of syncope. She was caught by her who gently lowered her to the ground. She was back to talking within 2-3 minutes. There was no convulsive activity noted. Of note is that she does have a diagnosis of pseudotumor cerebri for several years. She was placed on topiramate. She has been losing weight. She has had a change in vision where for some time. She does not see well to the right visual field. She was concerned she was exposed to carbon monoxide. An arterial blood gas did reveal carbon monoxide level elevated at 3.4%. Of note, she is a smoker of cigarettes. She had a cough for about a week and felt generally poorly. She has also had laryngitis for the same timeframe. PAST MEDICAL HISTORY: 1. Hypertension. 2. Pseudotumor cerebri. 3. Tubal ligation. ALLERGIES: ACETAMINOPHEN AND HYDROCODONE. MEDICINES PRIOR TO ADMISSION: Clonazepam 1 mg as needed, gabapentin 300 mg 3 times per day, lisinopril/hydrochlorothiazide and topiramate. FAMILY HISTORY: Pertinent for high cholesterol and hypertension. SOCIAL HISTORY: She smokes less than a pack of cigarettes a day. She does not drink alcohol or use recreational drugs. She works at [employer]. REVIEW OF SYSTEMS: She has had a cough and cold with a headache. She developed the headache with the smell at [employer]. It was a natural gas smell. It was shortly thereafter that she passed out briefly. She has some impaired vision with claiming a loss of visual field to the right. She denies any history of stroke. She has not had any cognitive loss. She has had a loss of her voice with this cough and cold. She has not had chest or abdominal pain. She does not have bone or joint pain. There has been no fever or rash. Does not have any gastrointestinal or genitourinary complaint. She does not have any psychiatric complaints. She does not complain of easy bruising, bleeding or swelling. PHYSICAL EXAMINATION: VITAL SIGNS: The blood pressure was 156/92, pulse 87, respirations 18, temperature 98.2 degrees Fahrenheit. Oximetry was 96% on room air. GENERAL: She was alert, awake and cooperative. Speech was fluent and clear. She had a good fund of recent and remote knowledge. Attention and concentration was intact. She appeared well groomed and well nourished. She was fully oriented. NEUROLOGIC: Examination of the cranial nerves revealed visual lujan were full to confrontation. Extraocular movements were intact. The eyes were conjugate. Pursuit movements were smooth and saccadic eye movements were without dysmetria. Pupils were 4 mm and reactive. Funduscopic exam did not reveal papilledema, exudate or hemorrhage. Facial sensation was intact. The muscles of mastication and facial expression were powerful symmetrically. Hearing was intact to finger rub. The palate arched symmetrically and the tongue was midline with full range of motion. Sternocleidomastoid and trapezius were powerful. Muscle bulk and tone was normal. There was no arm or leg drift. The power was full and symmetric in the upper and lower extremities. Reflexes 2/4 and symmetric in the upper and lower extremities. Toes are downgoing. Coordination testing with [id number], [id number], fine motor and rapid alternating movements was well performed. The sensory exam was intact to pain, light touch, proprioception, graphesthesia, cold thermal and vibration. There was no extinction to double simultaneous stimulation. Gait was not testable. NECK: Auscultation of the carotid arteries did not reveal a bruit. HEART: Rhythm is regular, without a murmur. EXTREMITIES: Peripheral pulses were symmetric. There was no edema or cyanosis. REVIEW OF LABORATORY DATA: CBC revealed a normal white blood cell count, hemoglobin, hematocrit and platelet count from 03/03/2019. Chemistry from the same date, revealed normal electrolytes, BUN, creatinine, glucose, liver enzymes, calcium, total protein and albumin. Troponin was not elevated. She has undergone 2 arterial blood gas. The first was 0-42 in the morning with a normal pH. The pCO2 was 36. The pO2 was low at 71 and bicarbonate was normal at 22. Carbon monoxide level was elevated at 3.4. She then was placed on 100% FiO2 and that was remeasured at 9:50 this morning with normal pH, normal pCO2, elevated oxygen at 147, normal bicarbonate and carbon monoxide level down to 0.3. IMPRESSION: The patient is a pleasant 39-year-old woman who had an episode of syncope. The cause of this is not entirely clear and would certainly not be related to the slow CO2 ____ carbon monoxide level. It is quite possible the carbon monoxide was elevated at this point just because of her cigarette smoking as it can be elevated at 3% to 6% depending on the amount of smoking that she does in the proximity to the blood gas. She was confirmed that her coworker, , also smelled the same thing, although she may have had more exposure. May have wafted in from outside as they could not find a source in the restaurant. She had been having a cough and cold and it is possible this just added up with the smell and made her pass out. There was no convulsive activity. I do not suspect seizure. She does have an abnormal visual field to the right, which is of concern and would not be related to pseudotumor cerebri. RECOMMENDATIONS: We will obtain an MRI brain without contrast for tomorrow to better evaluate for evidence of stroke, especially in light of the fact that the CAT scan revealed a possible stroke, although this would not be in an area that would cause a visual field loss. I am relieved that her disc looked fairly good, so the pseudotumor cerebri appears to be in remission with her weight loss and current medical regimen. She is quite concerned about influenza and a flu swab has already been ordered. WENDY MALHOTRA MD DR: EDILBERTO/loreta JOB#: [id number] / [id number] AGNIESZKA Reyes MD, FERILYN MD
[2019-03-04 07:00] VITALS: BP 206/122
[2019-03-04] MEDS: BUDESONIDE 0.5 MG/2 ML NEBU. NEB SCH (07:29)
[2019-03-04] MEDS: IPRATRPIUM/ALBUTEROL 0.5/2.5MG 3 ML NEBU. NEB SCH ×3 (07:30→15:51)
[2019-03-04] MEDS ORDERED: KETOROLAC 30 MG/ML VIAL. IV PRN (08:15)
[2019-03-04] MEDS: guaiFENesin ORAL 200 MG/10 ML LIQUID. PO PRN ×2 (08:38→12:18)
[2019-03-04] MEDS: LISINOPRIL 10 MG TABLET PO SCH (08:44)
[2019-03-04] MEDS: LACTOBACILLUS RHAMNOSUS GG 1 CAPSULE. PO SCH (08:44)
[2019-03-04] MEDS: TOPIRAMATE 25 MG TABLET. PO SCH ×2 (08:44→12:23)
[2019-03-04] MEDS: LORazepam 0.5 MG TABLET PO PRN ×2 (08:44→12:23)
[2019-03-04] MEDS: GABAPENTIN 300 MG CAPSULE. PO SCH ×2 (08:44→12:19)
[2019-03-04] MEDS ORDERED: ASA/APAP/CAFFEINE 250/250/65MG TABLET. PO PRN (08:45)
[2019-03-04] MEDS: ENOXAPARIN 40 MG/0.4 ML SYRINGE. SQ SCH (08:45)
[2019-03-04] MEDS: cefTRIAXone IV Push 1 GM VIAL. IVP SCH (08:45)
--- NOTE | 2019-03-04 09:09 | PDOC ---
PROGRESS NOTES Chief Complaint Chief Complaint A/P: Carbon monoxide poisoning, mild Pseudotumor cerebri HTN urgency, malignant Bronchitis Headache Right sided vision loss 28 minute patient examination, review of all relevant tests, discussed with pulmonology, neurology, will get MRI, then likely d/c home History of Present Illness History of Present Illness Ms Rodriguez is a 39 yo F w/ PMHx morbid obesity, pseudotumor cerebri, HTN, smoker who was admitted for syncope while she was at work, noticed that natural gas smell subsequently developed a headache along with experienced a syncopal episode. She states unknown amount of time for loss of consciousness, she could hear her boss talking with her. She denies any nausea or vomiting. She denies any chest pain HAS shortness of breath. She is currently alert and oriented. Has been hoarse x a week, is a smoker. Tested negative for influenza, was found with abnormal CT head and right sided vision loss, seen by neurology. Also seen by pulmonology for PCO of 3.4, treated with non-rebreather for CO poisoning, improved on repeat ABG. BP is up today with DBP > 120 and she coughed until she vomited while awaiting MRI. Is feeling better after breathing treatment, nausea control and amlodipine added for BP. Vitals Vitals Vital Signs Date Time Temp Pulse Resp B/P (MAP) Pulse Ox O2 Delivery O2 Flow Rate FiO2 03/04/19 08:45 95 206/122 03/04/19 07:35 95 Room Air 03/04/19 07:00 98.0 18 98.0 03/03/19 20:00 15.0 Physical Exam General: Alert, Oriented X3, Cooperative Heart: Regular rate, Normal S1, Normal S2 Lungs: Wheezing Abdomen: Soft Extremities: No clubbing, No cyanosis Skin: No rashes Labs LABS Laboratory Tests Test 03/03/19 09:50 03/03/19 19:09 O2 Saturation 98 % (92-99) Arterial Blood pH 7.43 (7.35-7.45) Arterial Blood pCO2 at Patient Temp 36 mmHg (35-46) Arterial Blood pO2 at Patient Temp 147 mmHg (75-108) Arterial Blood HCO3 23 mmol/L (21-28) Arterial Blood Base Excess -1 mmol/L (-3-3) Oxyhemoglobin 97.4 % Methemoglobin 0.6 % (0.0-1.9) Carbon Monoxide, Quantitative 0.3 % (0.0-1.9) FiO2 100 Influenza Type A Antigen Negative (NEGATIVE) Influenza Type B Antigen Negative (NEGATIVE) Assessment and Plan Assessmemt and Plan Problems Medical Problems: (1) Carbon monoxide poisoning Status: Acute (2) Hypertensive urgency Status: Acute (3) Syncope and collapse Status: Acute Comment Review of Relevant I have reviewed the following items karthik (where applicable) has been applied. Labs Laboratory Tests Test 03/03/19 02:42 03/03/19 03:08 03/03/19 09:50 03/03/19 19:09 O2 Saturation 94 % (92-99) 98 % (92-99) Arterial Blood pH 7.39 (7.35-7.45) 7.43 (7.35-7.45) Arterial Blood pCO2 at Patient Temp 36 mmHg (35-46) 36 mmHg (35-46) Arterial Blood pO2 at Patient Temp 71 mmHg (75-108) 147 mmHg (75-108) Arterial Blood HCO3 22 mmol/L (21-28) 23 mmol/L (21-28) Arterial Blood Base Excess -3 mmol/L (-3-3) -1 mmol/L (-3-3) Oxyhemoglobin 90.6 % 97.4 % Methemoglobin 0.4 % (0.0-1.9) 0.6 % (0.0-1.9) Carbon Monoxide, Quantitative 3.4 % (0.0-1.9) 0.3 % (0.0-1.9) FiO2 Room air 100 White Blood Count 5.5 x10^3/uL (4.0-11.0) Red Blood Count 4.77 x10^6/uL (3.50-5.40) Hemoglobin 13.7 g/dL (12.0-15.5) Hematocrit 40.6 % (36.0-47.0) Mean Corpuscular Volume 85 fL (79-100) Mean Corpuscular Hemoglobin 29 pg (25-35) Mean Corpuscular Hemoglobin Concent 34 g/dL (31-37) Red Cell Distribution Width 13.7 % (11.5-14.5) Platelet Count 246 x10^3/uL (140-400) Neutrophils (%) (Auto) 53 % (31-73) Lymphocytes (%) (Auto) 37 % (24-48) Monocytes (%) (Auto) 6 % (0-9) Eosinophils (%) (Auto) 3 % (0-3) Basophils (%) (Auto) 1 % (0-3) Neutrophils # (Auto) 2.9 x10^3/uL (1.8-7.7) Lymphocytes # (Auto) 2.0 x10^3/uL (1.0-4.8) Monocytes # (Auto) 0.3 x10^3/uL (0.0-1.1) Eosinophils # (Auto) 0.2 x10^3/uL (0.0-0.7) Basophils # (Auto) 0.1 x10^3/uL (0.0-0.2) Sodium Level 142 mmol/L (136-145) Potassium Level 3.8 mmol/L (3.5-5.1) Chloride Level 103 mmol/L (98-107) Carbon Dioxide Level 27 mmol/L (21-32) Anion Gap 12 (6-14) Blood Urea Nitrogen 11 mg/dL (7-20) Creatinine 0.9 mg/dL (0.6-1.0) Estimated GFR (Cockcroft-Gault) 84.3 BUN/Creatinine Ratio 12 (6-20) Glucose Level 97 mg/dL (70-99) Calcium Level 9.5 mg/dL (8.5-10.1) Total Bilirubin 0.2 mg/dL (0.2-1.0) Aspartate Amino Transf (AST/SGOT) 16 U/L (15-37) Alanine Aminotransferase (ALT/SGPT) 22 U/L (14-59) Alkaline Phosphatase 101 U/L (46-116) Troponin I Quantitative < 0.017 ng/mL (0.000-0.055) Total Protein 7.6 g/dL (6.4-8.2) Albumin 4.0 g/dL (3.4-5.0) Albumin/Globulin Ratio 1.1 (1.0-1.7) Influenza Type A Antigen Negative (NEGATIVE) Influenza Type B Antigen Negative (NEGATIVE) Laboratory Tests Test 03/03/19 09:50 03/03/19 19:09 O2 Saturation 98 % (92-99) Arterial Blood pH 7.43 (7.35-7.45) Arterial Blood pCO2 at Patient Temp 36 mmHg (35-46) Arterial Blood pO2 at Patient Temp 147 mmHg (75-108) Arterial Blood HCO3 23 mmol/L (21-28) Arterial Blood Base Excess -1 mmol/L (-3-3) Oxyhemoglobin 97.4 % Methemoglobin 0.6 % (0.0-1.9) Carbon Monoxide, Quantitative 0.3 % (0.0-1.9) FiO2 100 Influenza Type A Antigen Negative (NEGATIVE) Influenza Type B Antigen Negative (NEGATIVE) Medications Current Medications Clonidine HCl (Catapres) 0.1 mg 1X ONCE PO Last administered on 03/03/19at 03:11; Start 03/03/19 at 03:00; Stop 03/03/19 at 03:01; Status DC Ketorolac Tromethamine (Toradol 30mg Vial) 30 mg 1X ONCE IV Last administered on 03/03/19at 03:11; Start 03/03/19 at 03:00; Stop 03/03/19 at 03:01; Status DC Hydralazine HCl (Apresoline Inj) 10 mg 1X ONCE IVP Last administered on 03/03/19at 04:29; Start 03/03/19 at 04:30; Stop 03/03/19 at 04:31; Status DC Albuterol Sulfate (Ventolin Neb Soln) 2.5 mg RTQID NEB Last administered on 03/03/19at 08:54; Start 03/03/19 at 09:00; Stop 03/03/19 at 09:47; Status DC Ceftriaxone Sodium (Rocephin) 1 gm Q24H IVP Last administered on 03/04/19at 08:45; Start 03/03/19 at 10:30 Albuterol/ Ipratropium (Duoneb) 3 ml RTQID NEB Last administered on 03/04/19at 07:34; Start 03/03/19 at 12:00 Budesonide (Pulmicort) 0.5 mg RTBID NEB Last administered on 03/04/19at 07:34; Start 03/03/19 at 12:00 Albuterol Sulfate (Ventolin Neb Soln) 2.5 mg PRN QID PRN NEB SHORTNESS OF BREATH; Start 03/03/19 at 10:00 Sodium Chloride (Normal Saline Flush) 3 ml QSHIFT PRN IV AFTER MEDS AND BLOOD DRAWS; Start 03/03/19 at 11:45 Sodium Chloride 1,000 ml @ 100 mls/hr Q10H IV ; Start 03/03/19 at 12:30; Stop 03/03/19 at 12:30; Status DC Ondansetron HCl (Zofran) 4 mg PRN Q4HRS PRN IV NAUSEA/VOMITING; Start 03/03/19 at 11:45 Acetaminophen (Tylenol) 650 mg PRN Q4HRS PRN PO TEMP OVER 100.4F OR MILD PAIN; Start 03/03/19 at 11:45; Status UNV Al Hydroxide/Mg Hydroxide (Mylanta Plus Xs) 30 ml PRN DAILY PRN PO HEARTBURN / GAS; Start 03/03/19 at 11:45 Clonidine HCl (Catapres) 0.1 mg PRN Q6HRS PRN PO SBP>160 OR DBP>90; Start 03/03/19 at 11:45 Docusate Sodium (Colace) 100 mg PRN BID PRN PO CONSTIPATION; Start 03/03/19 at 11:45 Guaifenesin (Robitussin) 200 mg PRN Q4HRS PRN PO COUGH Last administered on 03/04/19 08:39; Start 03/03/19 at 11:45 Lorazepam (Ativan) 0.5 mg PRN Q4HRS PRN PO ANXIETY / AGITATION Last administered on 03/04/19at 08:45; Start 03/03/19 at 11:45 Enoxaparin Sodium (Lovenox 40mg Syringe) 40 mg BID SQ Last administered on 03/04/19at 08:45; Start 03/03/19 at 21:00 Clonazepam (KlonoPIN) 1 mg PRN QHS PRN PO INSOMNIA.; Start 03/03/19 at 12:45 Gabapentin (Neurontin) 300 mg TID PO Last administered on 03/04/19 08:45; Start 03/03/19 at 14:00 Lisinopril (Prinivil) 10 mg DAILY PO Last administered on 03/04/19 08:45; Start 03/03/19 at 13:30 Topiramate (Topamax) 25 mg TID PO Last administered on 03/04/19at 08:45; Start 03/03/19 at 14:00 Hydralazine HCl (Apresoline Inj) 10 mg PRN Q4HRS PRN IVP ELEVATED BP, SEE COMMENTS Last administered on 03/04/19at 07:37; Start 03/03/19 at 12:30 Lactobacillus Rhamnosus (Culturelle) 1 cap BID PO Last administered on 03/04/19at 08:45; Start 03/03/19 at 21:00 Ketorolac Tromethamine (Toradol 30mg Vial) 30 mg PRN Q6HRS PRN IV PAIN Last administered on 03/04/19at 08:39; Start 03/04/19 at 08:15; Stop 03/09/19 at 08:14 Acetaminophen/ Aspirin/Caffeine (Excedrin Migraine) 1 tab PRN Q6HRS PRN PO MIGRAINE HEADACHE; Start 03/04/19 at 08:45; Status UNV Active Scripts Active Reported Gabapentin 600 Mg Tablet 300 Mg PO TID Topiramate Unknown Strength Tablet Unknown Dose PO TID Lisinopril-Hctz 10-12.5 Mg Tab (Lisinopril/Hydrochlorothiazide) Unknown Strength Tablet Unknown Dose PO DAILY Clonazepam 1 Mg Tablet 1 Mg PO HS PRN Vitals/I & O Vital Sign - Last 24 Hours 03/03/19 03/03/19 03/03/19 03/03/19 09:50 11:44 12:00 12:05 Temp 97.3 97.3 Pulse 82 Resp 20 B/P (MAP) 179/115 (136) 188/110 (136) Pulse Ox 99 96 93 O2 Delivery NonRebreather Mask Room Air Room Air O2 Flow Rate 15.0 03/03/19 03/03/19 03/03/19 03/03/19 14:13 14:13 14:59 15:00 Temp 98.2 98.2 Pulse 82 82 87 Resp 18 B/P (MAP) 188/110 188/110 156/92 (113) Pulse Ox 96 96 O2 Delivery Room Air Room Air 03/03/19 03/03/19 03/03/19 03/03/19 19:21 19:30 19:35 19:40 Temp 97.9 97.9 97.9 97.9 97.9 97.9 Pulse 96 96 105 Resp 20 20 20 B/P (MAP) 170/89 (116) 164/95 (118) 208/130 (156) Pulse Ox 95 95 95 95 O2 Delivery Room Air Room Air Room Air Room Air 03/03/19 03/03/19 03/04/19 03/04/19 20:00 23:45 03:40 04:02 Temp 98.3 98.2 98.3 98.2 Pulse 78 76 Resp 20 18 B/P (MAP) 123/95 (104) 182/105 (130) 182/100 Pulse Ox 93 94 O2 Delivery Non-Rebreather Room Air Room Air O2 Flow Rate 15.0 03/04/19 03/04/19 03/04/19 03/04/19 07:00 07:35 07:37 08:45 Temp 98.0 98.0 Pulse 82 95 95 Resp 18 B/P (MAP) 206/122 (150) 206/122 206/122 Pulse Ox 97 95 O2 Delivery Room Air Room Air Intake and Output 03/03/19 03/03/19 03/04/19 14:59 22:59 06:59 Intake Total 550 ml 400 ml Balance 550 ml 400 ml NITA ACE MD Mar 04, 2019 09:09
[2019-03-04 09:14] VITALS: BP 166/98
[2019-03-04] MEDS ORDERED: amLODIPine BESYLATE 5 MG TABLET PO SCH (09:15)
--- NOTE | 2019-03-04 09:42 | PDOC ---
PULMONARY PROGRESS NOTES Subjective NO SOA Vitals Vital Signs Date Time Temp Pulse Resp B/P (MAP) Pulse Ox O2 Delivery O2 Flow Rate FiO2 03/04/19 09:14 87 166/98 (120) 03/04/19 07:35 95 Room Air 03/04/19 07:00 98.0 18 98.0 03/03/19 20:00 15.0 General: Alert, No acute distress Lungs: Clear Cardiovascular: S1 Abdomen: Soft Neuro Exam: Alert Extremities: No Edema Skin: Warm Labs Laboratory Tests Test 03/03/19 02:42 03/03/19 03:08 03/03/19 09:50 03/03/19 19:09 O2 Saturation 94 % (92-99) 98 % (92-99) Arterial Blood pH 7.39 (7.35-7.45) 7.43 (7.35-7.45) Arterial Blood pCO2 at Patient Temp 36 mmHg (35-46) 36 mmHg (35-46) Arterial Blood pO2 at Patient Temp 71 mmHg (75-108) 147 mmHg (75-108) Arterial Blood HCO3 22 mmol/L (21-28) 23 mmol/L (21-28) Arterial Blood Base Excess -3 mmol/L (-3-3) -1 mmol/L (-3-3) Oxyhemoglobin 90.6 % 97.4 % Methemoglobin 0.4 % (0.0-1.9) 0.6 % (0.0-1.9) Carbon Monoxide, Quantitative 3.4 % (0.0-1.9) 0.3 % (0.0-1.9) FiO2 Room air 100 White Blood Count 5.5 x10^3/uL (4.0-11.0) Red Blood Count 4.77 x10^6/uL (3.50-5.40) Hemoglobin 13.7 g/dL (12.0-15.5) Hematocrit 40.6 % (36.0-47.0) Mean Corpuscular Volume 85 fL (79-100) Mean Corpuscular Hemoglobin 29 pg (25-35) Mean Corpuscular Hemoglobin Concent 34 g/dL (31-37) Red Cell Distribution Width 13.7 % (11.5-14.5) Platelet Count 246 x10^3/uL (140-400) Neutrophils (%) (Auto) 53 % (31-73) Lymphocytes (%) (Auto) 37 % (24-48) Monocytes (%) (Auto) 6 % (0-9) Eosinophils (%) (Auto) 3 % (0-3) Basophils (%) (Auto) 1 % (0-3) Neutrophils # (Auto) 2.9 x10^3/uL (1.8-7.7) Lymphocytes # (Auto) 2.0 x10^3/uL (1.0-4.8) Monocytes # (Auto) 0.3 x10^3/uL (0.0-1.1) Eosinophils # (Auto) 0.2 x10^3/uL (0.0-0.7) Basophils # (Auto) 0.1 x10^3/uL (0.0-0.2) Sodium Level 142 mmol/L (136-145) Potassium Level 3.8 mmol/L (3.5-5.1) Chloride Level 103 mmol/L (98-107) Carbon Dioxide Level 27 mmol/L (21-32) Anion Gap 12 (6-14) Blood Urea Nitrogen 11 mg/dL (7-20) Creatinine 0.9 mg/dL (0.6-1.0) Estimated GFR (Cockcroft-Gault) 84.3 BUN/Creatinine Ratio 12 (6-20) Glucose Level 97 mg/dL (70-99) Calcium Level 9.5 mg/dL (8.5-10.1) Total Bilirubin 0.2 mg/dL (0.2-1.0) Aspartate Amino Transf (AST/SGOT) 16 U/L (15-37) Alanine Aminotransferase (ALT/SGPT) 22 U/L (14-59) Alkaline Phosphatase 101 U/L (46-116) Troponin I Quantitative < 0.017 ng/mL (0.000-0.055) Total Protein 7.6 g/dL (6.4-8.2) Albumin 4.0 g/dL (3.4-5.0) Albumin/Globulin Ratio 1.1 (1.0-1.7) Influenza Type A Antigen Negative (NEGATIVE) Influenza Type B Antigen Negative (NEGATIVE) Laboratory Tests Test 03/03/19 09:50 03/03/19 19:09 O2 Saturation 98 % (92-99) Arterial Blood pH 7.43 (7.35-7.45) Arterial Blood pCO2 at Patient Temp 36 mmHg (35-46) Arterial Blood pO2 at Patient Temp 147 mmHg (75-108) Arterial Blood HCO3 23 mmol/L (21-28) Arterial Blood Base Excess -1 mmol/L (-3-3) Oxyhemoglobin 97.4 % Methemoglobin 0.6 % (0.0-1.9) Carbon Monoxide, Quantitative 0.3 % (0.0-1.9) FiO2 100 Influenza Type A Antigen Negative (NEGATIVE) Influenza Type B Antigen Negative (NEGATIVE) Medications Active Scripts Medications Dose Route/Sig Max Daily Dose Days Date Category Gabapentin 600 Mg Tablet 300 Mg PO TID 03/03/19 Reported Topiramate Unknown Strength Tablet Unknown Dose PO TID 03/03/19 Reported Lisinopril-Hctz 10-12.5 Mg Tab (Lisinopril/Hydrochlorothiazide) Unknown Strength Tablet Unknown Dose PO DAILY 03/03/19 Reported Clonazepam 1 Mg Tablet 1 Mg PO HS PRN 03/03/19 Reported Impression . 1. Mild carbon monoxide poisoning, clinically better. OFF nonrebreather mask. Her carbon monoxide level is NORMAL NOW 2. Recent viral laryngitis, which she developed prior to this episode and was tested for flu. It was equivocal. repeat influenza test neg 3. History of tobaccoism. 4. chest x-ray clear Plan . 1. repeat ABGs with carbon monoxide level normal 2. empiric antibiotic. 3. Repeat influenza screen neg 4. bronchodilators. 5. Smoking cessation counseling provided. 6. Discussed with RN.and DR WANG banks with [facility] will sign off JAGDISH RODNEY MD Mar 04, 2019 09:42
[2019-03-04 11:17] VITALS: BP 171/93
--- NOTE | 2019-03-04 11:42 | PDOC ---
PROGRESS NOTES Assessment Problems Medical Problems: (1) Carbon monoxide poisoning Status: Acute (2) Hypertensive urgency Status: Acute (3) Syncope and collapse Status: Acute Syncope Possible carbon monoxide poisoning or just elevated carbon dioxide from smoking Chronic headaches and benign intracranial hypertension, follows with neurologist at [facility] Plan Await brain MRI Toradol and Excedrin as needed for headaches Continued topiramate, consider adding on Diamox I will consider repeat lumbar puncture tomorrow if she is no better to measure opening pressure and also therapeutically drain to lower the pressure if it is elevated. Follow up with her [facility] neurologist Discharge later today if blood pressure and headaches are controlled and MRIs negative. Subjective Has a 10/10 headache, complains of loss of peripheral vision in the right eye. Objective Vital Signs Date Time Temp Pulse Resp B/P (MAP) Pulse Ox O2 Delivery O2 Flow Rate FiO2 03/04/19 11:17 98.1 89 18 171/93 (119) 96 Room Air 98.1 03/03/19 20:00 15.0 Intake and Output 03/04/19 06:59 Intake Total 950 ml Balance 950 ml Intake Oral 950 ml PHYSICAL EXAM Alert. Oriented to time, place and person. PERRL. EOMI. CN: Temporal vision loss, right eye, not homonymous hemianopsia on my examination, otherwise no focal findings. Muscle tone: normal. Muscle strength: 5/5 DTR: 2+ Plantar reflex: flexor Gait: normal. Sensory exam: no abnormal findings. No cerebellar signs elicited. Review of Relevant I have reviewed the following items karthik (where applicable) has been applied. Labs Laboratory Tests Test 03/03/19 02:42 03/03/19 03:08 03/03/19 09:50 03/03/19 19:09 O2 Saturation 94 % (92-99) 98 % (92-99) Arterial Blood pH 7.39 (7.35-7.45) 7.43 (7.35-7.45) Arterial Blood pCO2 at Patient Temp 36 mmHg (35-46) 36 mmHg (35-46) Arterial Blood pO2 at Patient Temp 71 mmHg (75-108) 147 mmHg (75-108) Arterial Blood HCO3 22 mmol/L (21-28) 23 mmol/L (21-28) Arterial Blood Base Excess -3 mmol/L (-3-3) -1 mmol/L (-3-3) Oxyhemoglobin 90.6 % 97.4 % Methemoglobin 0.4 % (0.0-1.9) 0.6 % (0.0-1.9) Carbon Monoxide, Quantitative 3.4 % (0.0-1.9) 0.3 % (0.0-1.9) FiO2 Room air 100 White Blood Count 5.5 x10^3/uL (4.0-11.0) Red Blood Count 4.77 x10^6/uL (3.50-5.40) Hemoglobin 13.7 g/dL (12.0-15.5) Hematocrit 40.6 % (36.0-47.0) Mean Corpuscular Volume 85 fL (79-100) Mean Corpuscular Hemoglobin 29 pg (25-35) Mean Corpuscular Hemoglobin Concent 34 g/dL (31-37) Red Cell Distribution Width 13.7 % (11.5-14.5) Platelet Count 246 x10^3/uL (140-400) Neutrophils (%) (Auto) 53 % (31-73) Lymphocytes (%) (Auto) 37 % (24-48) Monocytes (%) (Auto) 6 % (0-9) Eosinophils (%) (Auto) 3 % (0-3) Basophils (%) (Auto) 1 % (0-3) Neutrophils # (Auto) 2.9 x10^3/uL (1.8-7.7) Lymphocytes # (Auto) 2.0 x10^3/uL (1.0-4.8) Monocytes # (Auto) 0.3 x10^3/uL (0.0-1.1) Eosinophils # (Auto) 0.2 x10^3/uL (0.0-0.7) Basophils # (Auto) 0.1 x10^3/uL (0.0-0.2) Sodium Level 142 mmol/L (136-145) Potassium Level 3.8 mmol/L (3.5-5.1) Chloride Level 103 mmol/L (98-107) Carbon Dioxide Level 27 mmol/L (21-32) Anion Gap 12 (6-14) Blood Urea Nitrogen 11 mg/dL (7-20) Creatinine 0.9 mg/dL (0.6-1.0) Estimated GFR (Cockcroft-Gault) 84.3 BUN/Creatinine Ratio 12 (6-20) Glucose Level 97 mg/dL (70-99) Calcium Level 9.5 mg/dL (8.5-10.1) Total Bilirubin 0.2 mg/dL (0.2-1.0) Aspartate Amino Transf (AST/SGOT) 16 U/L (15-37) Alanine Aminotransferase (ALT/SGPT) 22 U/L (14-59) Alkaline Phosphatase 101 U/L (46-116) Troponin I Quantitative < 0.017 ng/mL (0.000-0.055) Total Protein 7.6 g/dL (6.4-8.2) Albumin 4.0 g/dL (3.4-5.0) Albumin/Globulin Ratio 1.1 (1.0-1.7) Influenza Type A Antigen Negative (NEGATIVE) Influenza Type B Antigen Negative (NEGATIVE) Laboratory Tests Test 03/03/19 19:09 Influenza Type A Antigen Negative (NEGATIVE) Influenza Type B Antigen Negative (NEGATIVE) Medications Current Medications Clonidine HCl (Catapres) 0.1 mg 1X ONCE PO Last administered on 03/03/19at 03:11; Start 03/03/19 at 03:00; Stop 03/03/19 at 03:01; Status DC Ketorolac Tromethamine (Toradol 30mg Vial) 30 mg 1X ONCE IV Last administered on 03/03/19at 03:11; Start 03/03/19 at 03:00; Stop 03/03/19 at 03:01; Status DC Hydralazine HCl (Apresoline Inj) 10 mg 1X ONCE IVP Last administered on 03/03/19at 04:29; Start 03/03/19 at 04:30; Stop 03/03/19 at 04:31; Status DC Albuterol Sulfate (Ventolin Neb Soln) 2.5 mg RTQID NEB Last administered on 03/03/19at 08:54; Start 03/03/19 at 09:00; Stop 03/03/19 at 09:47; Status DC Ceftriaxone Sodium (Rocephin) 1 gm Q24H IVP Last administered on 03/04/19at 08:45; Start 03/03/19 at 10:30 Albuterol/ Ipratropium (Duoneb) 3 ml RTQID NEB Last administered on 03/04/19at 07:34; Start 03/03/19 at 12:00 Budesonide (Pulmicort) 0.5 mg RTBID NEB Last administered on 03/04/19at 07:34; Start 03/03/19 at 12:00 Albuterol Sulfate (Ventolin Neb Soln) 2.5 mg PRN QID PRN NEB SHORTNESS OF BREATH; Start 03/03/19 at 10:00 Sodium Chloride (Normal Saline Flush) 3 ml QSHIFT PRN IV AFTER MEDS AND BLOOD DRAWS; Start 03/03/19 at 11:45 Sodium Chloride 1,000 ml @ 100 mls/hr Q10H IV ; Start 03/03/19 at 12:30; Stop 03/03/19 at 12:30; Status DC Ondansetron HCl (Zofran) 4 mg PRN Q4HRS PRN IV NAUSEA/VOMITING; Start 03/03/19 at 11:45 Acetaminophen (Tylenol) 650 mg PRN Q4HRS PRN PO TEMP OVER 100.4F OR MILD PAIN; Start 03/03/19 at 11:45; Status UNV Al Hydroxide/Mg Hydroxide (Mylanta Plus Xs) 30 ml PRN DAILY PRN PO HEARTBURN / GAS; Start 03/03/19 at 11:45 Clonidine HCl (Catapres) 0.1 mg PRN Q6HRS PRN PO SBP>160 OR DBP>90; Start 03/03/19 at 11:45 Docusate Sodium (Colace) 100 mg PRN BID PRN PO CONSTIPATION; Start 03/03/19 at 11:45 Guaifenesin (Robitussin) 200 mg PRN Q4HRS PRN PO COUGH Last administered on 03/04/19at 08:39; Start 03/03/19 at 11:45 Lorazepam (Ativan) 0.5 mg PRN Q4HRS PRN PO ANXIETY / AGITATION Last administered on 03/04/19at 08:45; Start 03/03/19 at 11:45 Enoxaparin Sodium (Lovenox 40mg Syringe) 40 mg BID SQ Last administered on 03/04/19at 08:45; Start 03/03/19 at 21:00 Clonazepam (KlonoPIN) 1 mg PRN QHS PRN PO INSOMNIA.; Start 03/03/19 at 12:45 Gabapentin (Neurontin) 300 mg TID PO Last administered on 03/04/19 08:45; Start 03/03/19 at 14:00 Lisinopril (Prinivil) 10 mg DAILY PO Last administered on 03/04/19at 08:45; Start 03/03/19 at 13:30 Topiramate (Topamax) 25 mg TID PO Last administered on 03/04/19at 08:45; Start 03/03/19 at 14:00 Hydralazine HCl (Apresoline Inj) 10 mg PRN Q4HRS PRN IVP ELEVATED BP, SEE COMMENTS Last administered on 03/04/19at 07:37; Start 03/03/19 at 12:30 Lactobacillus Rhamnosus (Culturelle) 1 cap BID PO Last administered on 03/04/19at 08:45; Start 03/03/19 at 21:00 Ketorolac Tromethamine (Toradol 30mg Vial) 30 mg PRN Q6HRS PRN IV PAIN Last administered on 03/04/19at 08:39; Start 03/04/19 at 08:15; Stop 03/09/19 at 08:14 Acetaminophen/ Aspirin/Caffeine (Excedrin Migraine) 1 tab PRN Q6HRS PRN PO MIGRAINE HEADACHE; Start 03/04/19 at 08:45 Amlodipine Besylate (Norvasc) 5 mg DAILY PO Last administered on 03/04/19at 10:25; Start 03/04/19 at 09:15 Active Scripts Active Reported Gabapentin 600 Mg Tablet 300 Mg PO TID Topiramate Unknown Strength Tablet Unknown Dose PO TID Lisinopril-Hctz 10-12.5 Mg Tab (Lisinopril/Hydrochlorothiazide) Unknown Strength Tablet Unknown Dose PO DAILY Clonazepam 1 Mg Tablet 1 Mg PO HS PRN Vitals/I & O Vital Sign - Last 24 Hours 03/03/19 03/03/19 03/03/19 03/03/19 11:44 12:00 12:05 14:13 Temp 97.3 97.3 Pulse 82 82 Resp 20 B/P (MAP) 179/115 (136) 188/110 (136) 188/110 Pulse Ox 96 93 O2 Delivery Room Air Room Air 03/03/19 03/03/19 03/03/1919 14:13 14:59 15:00 19:21 Temp 98.2 98.2 Pulse 82 87 Resp 18 B/P (MAP) 188/110 156/92 (113) Pulse Ox 96 96 95 O2 Delivery Room Air Room Air Room Air 03/03/19 03/03/19 03/03/19 03/03/19 19:30 19:35 19:40 20:00 Temp 97.9 97.9 97.9 97.9 97.9 97.9 Pulse 96 96 105 Resp 20 20 20 B/P (MAP) 170/89 (116) 164/95 (118) 208/130 (156) Pulse Ox 95 95 95 O2 Delivery Room Air Room Air Room Air Non-Rebreather O2 Flow Rate 15.0 03/03/19 03/04/19 03/04/19 03/04/19 23:45 03:40 04:02 07:00 Temp 98.3 98.2 98.0 98.3 98.2 98.0 Pulse 78 76 82 Resp 20 18 18 B/P (MAP) 123/95 (104) 182/105 (130) 182/100 206/122 (150) Pulse Ox 93 94 97 O2 Delivery Room Air Room Air Room Air 03/04/19 03/04/19 03/04/19 03/04/19 07:35 07:37 08:45 09:14 Pulse 95 95 87 B/P (MAP) 206/122 206/122 166/98 (120) Pulse Ox 95 O2 Delivery Room Air 03/04/19 03/04/19 10:25 11:17 Temp 98.1 98.1 Pulse 87 89 Resp 18 B/P (MAP) 166/98 171/93 (119) Pulse Ox 96 O2 Delivery Room Air Intake and Output 03/03/19 03/03/19 03/04/19 14:59 22:59 06:59 Intake Total 550 ml 400 ml Balance 550 ml 400 ml AGNIESZKA JON MD Mar 04, 2019 11:42
[2019-03-04] MEDS ORDERED: PROMETHAZINE 12.5 MG TABLET. PO PRN (12:00)
[2019-03-04 12:23] VITALS: BP 148/94
[2019-03-04] MEDS ORDERED: LOSARTAN POTASSIUM 25 MG TABLET. PO SCH (13:00)
[2019-03-04] MEDS ORDERED: clonazePAM 0.5 MG TABLET PO PRN (13:17)
--- NOTE | 2019-03-04 14:37 | NUR ---
SW following pt for dc planning. Chart reviewed. Pt lives at home with family and admitted for Carbon monoxide poisoning and HTN urgency. PT's note reviewed- pt has been ad padmaja with ambulation. No SW needs noted at this time. Will continue to follow pending dc needs.
--- NOTE | 2019-03-04 14:40 | RAD ---
MRI of the brain without contrast 03/04/2019 Clinical History: Syncope. Possible stroke seen on CT scan of the head. Technique: Unenhanced T1-weighted sagittal and axial, T2-weighted axial and coronal and FLAIR, gradient echo and diffusion-weighted axial images of the brain were obtained. Findings: Comparison is made to the patient's CT scan of the head dated 03/03/2019. Images from the study are degraded by patient motion. There is mild generalized parenchymal atrophy. Patchy and several small focal areas of increased signal intensity are seen within the periventricular and subcortical white matter of both cerebral hemispheres on the FLAIR and T2-weighted images. These areas vary in size from 2 to 7 mm. These have a nonspecific MRI appearance but are felt to most likely represent areas of small vessel ischemic disease. No acute parenchymal abnormality is seen. No extra-axial fluid collection is seen. There is no MRI evidence of acute ischemia/infarction. Mild to moderate mucosal thickening is seen throughout the paranasal sinuses. There are small bilateral mastoid effusions, left greater than right. Normal flow voids are seen within the major vascular structures surrounding the brain parenchyma. Impression: No acute parenchymal abnormality is seen. Electronically signed by: Anthony Hdz MD (03/04/2019 2:37 PM) [id number]
[2019-03-04] MEDS ORDERED: PROM12.58 PO (14:50)
[2019-03-04] MEDS ORDERED: AMLO5TAB10 PO (14:50)
[2019-03-04] MEDS ORDERED: BREO ELLIPTA 11 EACH IH (14:50)
[2019-03-04] MEDS ORDERED: DOXY100C14 PO (14:50)
[2019-03-04] MEDS ORDERED: LOSA1TAB19 PO (14:50)
--- NOTE | 2019-03-04 14:54 | PDOC3 ---
Discharge Summary Visit Information Date of Admission: Mar 03, 2019 Date of Discharge: Mar 04, 2019 Admitting Diagnosis: CO poisoning, HTN urgency Final Diagnosis Problems Medical Problems: (1) Carbon monoxide poisoning Status: Acute (2) Hypertensive urgency Status: Acute (3) Syncope and collapse Status: Acute Brief Hospital Course Allergies Allergies Coded Allergies Type Severity Reaction Last Updated Verified hydrocodone Allergy Intermediate 03/03/19 Yes Vital Signs Vital Signs Date Time Temp Pulse Resp B/P (MAP) Pulse Ox O2 Delivery O2 Flow Rate FiO2 03/04/19 12:24 95 Room Air 03/04/19 12:23 92 148/94 03/04/19 11:17 98.1 18 98.1 03/03/19 20:00 15.0 Lab Results Laboratory Tests Test 03/03/19 02:42 03/03/19 03:08 03/03/19 09:50 03/03/19 19:09 O2 Saturation 94 % (92-99) 98 % (92-99) Arterial Blood pH 7.39 (7.35-7.45) 7.43 (7.35-7.45) Arterial Blood pCO2 at Patient Temp 36 mmHg (35-46) 36 mmHg (35-46) Arterial Blood pO2 at Patient Temp 71 mmHg (75-108) 147 mmHg (75-108) Arterial Blood HCO3 22 mmol/L (21-28) 23 mmol/L (21-28) Arterial Blood Base Excess -3 mmol/L (-3-3) -1 mmol/L (-3-3) Oxyhemoglobin 90.6 % 97.4 % Methemoglobin 0.4 % (0.0-1.9) 0.6 % (0.0-1.9) Carbon Monoxide, Quantitative 3.4 % (0.0-1.9) 0.3 % (0.0-1.9) FiO2 Room air 100 White Blood Count 5.5 x10^3/uL (4.0-11.0) Red Blood Count 4.77 x10^6/uL (3.50-5.40) Hemoglobin 13.7 g/dL (12.0-15.5) Hematocrit 40.6 % (36.0-47.0) Mean Corpuscular Volume 85 fL (79-100) Mean Corpuscular Hemoglobin 29 pg (25-35) Mean Corpuscular Hemoglobin Concent 34 g/dL (31-37) Red Cell Distribution Width 13.7 % (11.5-14.5) Platelet Count 246 x10^3/uL (140-400) Neutrophils (%) (Auto) 53 % (31-73) Lymphocytes (%) (Auto) 37 % (24-48) Monocytes (%) (Auto) 6 % (0-9) Eosinophils (%) (Auto) 3 % (0-3) Basophils (%) (Auto) 1 % (0-3) Neutrophils # (Auto) 2.9 x10^3/uL (1.8-7.7) Lymphocytes # (Auto) 2.0 x10^3/uL (1.0-4.8) Monocytes # (Auto) 0.3 x10^3/uL (0.0-1.1) Eosinophils # (Auto) 0.2 x10^3/uL (0.0-0.7) Basophils # (Auto) 0.1 x10^3/uL (0.0-0.2) Sodium Level 142 mmol/L (136-145) Potassium Level 3.8 mmol/L (3.5-5.1) Chloride Level 103 mmol/L (98-107) Carbon Dioxide Level 27 mmol/L (21-32) Anion Gap 12 (6-14) Blood Urea Nitrogen 11 mg/dL (7-20) Creatinine 0.9 mg/dL (0.6-1.0) Estimated GFR (Cockcroft-Gault) 84.3 BUN/Creatinine Ratio 12 (6-20) Glucose Level 97 mg/dL (70-99) Calcium Level 9.5 mg/dL (8.5-10.1) Total Bilirubin 0.2 mg/dL (0.2-1.0) Aspartate Amino Transf (AST/SGOT) 16 U/L (15-37) Alanine Aminotransferase (ALT/SGPT) 22 U/L (14-59) Alkaline Phosphatase 101 U/L (46-116) Troponin I Quantitative < 0.017 ng/mL (0.000-0.055) Total Protein 7.6 g/dL (6.4-8.2) Albumin 4.0 g/dL (3.4-5.0) Albumin/Globulin Ratio 1.1 (1.0-1.7) Influenza Type A Antigen Negative (NEGATIVE) Influenza Type B Antigen Negative (NEGATIVE) Laboratory Tests Test 03/03/19 19:09 Influenza Type A Antigen Negative (NEGATIVE) Influenza Type B Antigen Negative (NEGATIVE) Brief Hospital Course Ms Rodriguez is a 39 yo F w/ PMHx morbid obesity, pseudotumor cerebri, HTN, smoker who was admitted for syncope while she was at work, noticed that natural gas smell subsequently developed a headache along with experienced a syncopal episode. She states unknown amount of time for loss of consciousness, she could hear her boss talking with her. She denies any nausea or vomiting. She denies any chest pain HAS shortness of breath. She is currently alert and oriented. Has been hoarse x a week, is a smoker. Tested negative for influenza, was found with abnormal CT head and right sided vision loss, seen by neurology. Also seen by pulmonology for PCO of 3.4, treated with non-rebreather for CO poisoning, improved on repeat ABG. BP is up today with DBP > 120 and she coughed until she vomited while awaiting MRI. Is feeling better after breathing treatment, nausea control and amlodipine added for BP. D/c'd lisinopril replaced with losartan. A/P: Carbon monoxide poisoning, mild Pseudotumor cerebri HTN urgency, malignant Bronchitis Headache Right sided vision loss Greater than 30 minutes spent on d/c. Completed review of all relevant tests, discussed with pulmonology, neurology, negative MRI, d/c home MRI - There is mild generalized parenchymal atrophy. Patchy and several small focal areas of increased signal intensity are seen within the periventricular and subcortical white matter of both cerebral hemispheres on the FLAIR and T2- weighted images. These areas vary in size from 2 to 7 mm. These have a nonspecific MRI appearance but are felt to most likely represent areas of small vessel ischemic disease. No acute parenchymal abnormality is seen. No extra-axial fluid collection is s een. There is no MRI evidence of acute ischemia/infarction. Mild to moderate mucosal thickening is seen throughout the paranasal sinuses. There are small bilateral mastoid effusions, left greater than right. Normal flow voids are seen within the major vascular structures surrounding the brain parenchyma. Impression: No acute parenchymal abnormality is seen. Discharge Information Condition at Discharge: Improved Follow Up: Weeks (1) Disposition/Orders: D/C to Home Scheduled Amlodipine Besylate (Amlodipine Besylate) 5 Mg Tablet, 5 MG PO DAILY for HTN for 30 Days, #30 Ref 2 Prescribed by: NITA ACE MD on 03/04/19 145 Doxycycline Monohydrate (Doxycycline Monohydrate) 100 Mg Capsule, 1 CAP PO BID for Bronchitis for 5 Days, #10 Prescribed by: NITA ACE MD on 03/04/19 145 Fluticasone/Vilanterol (Breo Ellipta 100-25 Mcg Inh) 1 Each Aer.pow.ba, 1 PUFF IH DAILY for Bronchitis for 30 Days, #1 Ref 2 Prescribed by: NITA ACE MD on 03/04/191449 Gabapentin (Gabapentin) 600 Mg Tablet, 300 MG PO TID for NEUROGENIC PAIN, (Re ported) Entered as Reported by: DERW COWART on 03/03/19723 Last Taken: Unknown Dose on Unknown Date & Time Last Action: Converted on 03/03/191226 by PERCY WONG MD Losartan/Hydrochlorothiazide (Losartan-Hctz 50-12.5 Mg Tab) 1 Each Tablet, 1 TAB PO DAILY for HTN for 30 Days, #30 Ref 1 Prescribed by: NITA ACE MD on 03/04/191449 Topiramate (Topiramate) Unknown Strength Tablet, Unknown Dose PO TID for headaches, #60 Ref 1 (Reported) Entered as Reported by: DREW COWART on 03/03/19723 Last Taken: Unknown Dose on Unknown Date & Time Last Action: Converted on 03/03/191226 by PERCY WONG MD Scheduled PRN Clonazepam (Clonazepam) 1 Mg Tablet, 1 MG PO HS PRN for INSOMNIA, (Reported) Entered as Reported by: DREW COWART on 03/03/19723 Last Taken: Unknown Dose on Unknown Date & Time Last Action: Converted on 03/03/191226 by PERCY WONG MD Promethazine Hcl (Promethazine Hcl) 12.5 Mg Tablet, 12.5 MG PO PRN Q6HRS PRN for NAUSEA/VOMITING/Headache for 30 Days, #20 Prescribed by: NITA ACE MD on 03/04/191449 Discontinued Medications Lisinopril/Hydrochlorothiazide (Lisinopril-Hctz 10-12.5 Mg Tab) Unknown Strength Tablet, Unknown Dose PO DAILY for htn, #30 Ref 5 (Reported) Entered as Reported by: DREW COWART on 03/03/19 0724 Last Taken: UNKNOWN on Unknown Date & Time Last Action: Converted on 03/03/19 1227 by MD DB CHOU CHRISTOPHER S MD Mar 04, 2019 14:53
--- NOTE | 2019-03-04 16:10 | NUR ---
Discharge Note: JIMBO MIGUEL [facility] Discharge instructions and discharge home medications reviewed with Patient and a copy given. All questions have been answered and understanding verbalized. The following instructions and handouts were given: headaches, HTN, Carbon monox Discontinued lines and drains: peripheral iv. Patient discharged to Home or Self Care with Family Member via Wheelchair
== END 2019-03-04 16:11 | disposition home or self-care (01) | DRG 918 ==
LOC: ER 02:11 → OBSVTOIN 04:00 → 6 SOUTH 04:00
PROVIDERS: ADMIT Internal Medicine; ATTEND Internal Medicine
DX: T58.8X1A Toxic effect of carbon monoxide from other source, accidental (unintentional), initial encounter (principal); Z68.41 Body mass index [BMI] 40.0-44.9, adult; I10 Essential (primary) hypertension; I16.0 Hypertensive urgency; F17.210 Nicotine dependence, cigarettes, uncomplicated; E66.01 Morbid (severe) obesity due to excess calories; J04.0 Acute laryngitis; H54.61 Unqualified visual loss, right eye, normal vision left eye; J40 Bronchitis, not specified as acute or chronic; G93.2 Benign intracranial hypertension; Z98.51 Tubal ligation status; Z88.6 Allergy status to analgesic agent; Z88.5 Allergy status to narcotic agent; Y92.89 Other specified places as the place of occurrence of the external cause; Z82.49 Family history of ischemic heart disease and other diseases of the circulatory system
CPT/HCPCS: 36415; 36600; 70450; 70551; 71045; 80053; 82805; 84484; 85025; 87804; 93005; 94640; 96374; 96375; 99406; J0360; J0696; J1650; J1885; J2405; J7613; J7620; J7626; Q0169; 99285-25; G0378